=== PATIENT | male | born 1955 | race Caucasian/White ===

== ENCOUNTER 2020-12-20 07:02 | Day surgery (SDC) | payer OTHER ==
[~2020-12-20] VITALS: Ht 172.7 cm; Wt 69.2 kg
[~2020-12-20 07:02] MED LIST: ACET325 PO; ATOR20 PO; Aspir 8181 MG PO; BUPR150ER PO; DOC250 PO; ENAL10 PO; Flomax0.4 MG PO; HYDCHL12.5 PO; IBUP600 PO; Inderal60 MG PO; MELO7.5 PO; METO25ER PO; NICO2 PO; OXYC5 PO; PANT40; PANT40 PO; QUET100 PO; QUET200 PO; Rocephin 10001000 MG IV; Rocephin 1g1 G/50 ML IV; SENN187 PO; Seroquel Xr150 MG PO; TAMS.4ER PO; TRAM50 PO; Ventolin5 MG/1 ML INH
--- NOTE | 2020-12-20 07:51 | NUR ---
12/20/20 0751 GENESIS CANNON FIRST ATTEMPT AT IV R HAND INFILTRATED. SECOND ATTEMPT AT IV IN R FOREARM WAS SUCCESSFUL
== END 2020-12-20 08:55 | disposition home or self-care (01) ==
LOC: ORSCSDS 07:02 → ORD 08:30 → ORSCSDS 08:30
PROVIDERS: Surgery
PROC: 0DJD8ZZ Inspection of Lower Intestinal Tract, Via Natural or Artificial Opening Endoscopic (ICD-10-PCS; principal; 2020-12-20 08:30)
DX: Z12.11 Encounter for screening for malignant neoplasm of colon (principal); Z86.010 Personal history of colon polyps; K21.9 Gastro-esophageal reflux disease without esophagitis; I48.91 Unspecified atrial fibrillation; I10 Essential (primary) hypertension; F32.A Depression, unspecified; E11.9 Type 2 diabetes mellitus without complications; F17.210 Nicotine dependence, cigarettes, uncomplicated; Z79.82 Long term (current) use of aspirin; Z79.899 Other long term (current) drug therapy
CPT/HCPCS: 82947; J2405; J2704; J7120

== ENCOUNTER 2021-06-08 16:38 | Inpatient (IN) | payer OTHER ==
[~2021-06-08] VITALS: Ht 172.7 cm; Wt 67.7 kg
[2021-06-08 17:22] LABS: BASOPHILS ABSOLUTE AUTO 0.03 K/mm3 (0.00-0.23); BASOPHILS PERCENT AUTO 0 % (0-2); EOSINOPHILS PERCENT AUTO 0 % (0-6); Hemoglobin 12.7 g/dL (13.5-17.5); IMMATURE GRAN PERCENT AUTO 1 % (0-1); LYMPHOCYTES PERCENT AUTO 6 % (21-46); MONOCYTES ABSOLUTE AUTO 0.97 K/mm3 (0.16-1.47); MONOCYTES PERCENT AUTO 12 % (4-13); Mean Corpuscular HGB 35.7 pg (26.0-34.0); Mean Corpuscular HGB Conc 34.3 g/dL (31.5-36.5); Mean Corpuscular Volume 104 fL (80-100); Mean Platelet Volume 10.8 fL (9.1-12.4); NEUTROPHILS ABSOLUTE AUTO 6.86 K/mm3 (1.96-9.15); NEUTROPHILS PERCENT AUTO 81 % (41-73); Platelet Count 136 K/mm3 (150-400); RDW Coefficient Variation 15.4 % (11.7-14.2); RDW Standard Deviation 59.7 fL (35.1-46.3); Red Blood Cell Count 3.56 M/mm3 (4.30-5.90); White Blood Cell Count 8.46 K/mm3 (4.00-11.30)
[2021-06-08 17:33] LABS: Alanine Aminotransfer (ALT/SGP 121 U/L (12-78); Albumin, Blood 4.2 g/dL (3.4-5.0); Alk Phos 127 U/L (50-136); Anion Gap 16 mmol/L (6-16); Aspartate Aminotrans (AST/SGOT 200 U/L (12-37); Blood Urea Nitrogen 12 mg/dL (8-24); Bun/Creatinine Ratio 13.1 (12.0-20.0); CO2, Blood 19 mmol/L (21-32); Calcium, Blood 9.5 mg/dL (8.5-10.1); Chloride, Blood 99 mmol/L (98-108); Creatinine, Blood 0.92 mg/dL (0.60-1.20); Glomerular Filtration Rate >60 (60-); Glucose, Blood 106 mg/dL (70-99); Potassium, Blood 3.7 mmol/L (3.5-5.5); Sodium, Blood 134 mmol/L (136-145); Total Protein, Blood 8.2 g/dL (6.4-8.2)
[2021-06-08 18:25] LABS: Source, Urine Clean Catch
[2021-06-08 18:28] LABS: Bilirubin, Urine Neg (Neg); Blood, Urine 4+ (Neg); Color, Urine Yellow (P-Yellow); Glucose Qualitative, Urine Neg (Neg); Ketones, Urine 2+ (Neg); Leukocyte Esterase, Urine Neg (Neg); Nitrite, Urine Neg (Neg); Protein, Urine 1+ (Neg); Urobilinogen, Urine NORM (Normal)
[2021-06-08 18:41] LABS: Appearance, Urine Hazy (Clear)
[2021-06-08 18:42] LABS: Bacteria Mod /hpf; Red Blood Cells, Urine 0-2 /hpf (0-2); Squamous Epithelial Cells Few /hpf (Few); White Blood Cells, Urine 0-2 /hpf (0-5)
[2021-06-08 18:44] LABS: U Amphetamine Screen Not Detected; U Barbituate Screen Not Detected; U Benzodiazapine Screen Not Detected; U Buprenorphine Screen Not Detected; U Cannabinoids Screen Not Detected; U Cocaine Screen Not Detected; U Methadone Screen Not Detected; U Methamphetamine Screen Not Detected; U Opiates Screen Not Detected; U Oxycodone Screen Not Detected; U Phencyclidine Screen Not Detected; U Propoxyphene Screen Not Detected
--- NOTE | 2021-06-09 03:55 | NUR ---
Patient recieved in stable condition from the ER. Patient conversive and able to answer admit questions. Patient able to swallow medications whole with water. CIWA initiated. Patient shaky but did not score above 6 at this time. Voiding QS in urinal. Tele with intermittent bouts of sinus tach. Continue to momitor.
[2021-06-09 05:09] LABS: BASOPHILS ABSOLUTE AUTO 0.03 K/mm3 (0.00-0.23); BASOPHILS PERCENT AUTO 0 % (0-2); EOSINOPHILS PERCENT AUTO 0 % (0-6); Hemoglobin 12.1 g/dL (13.5-17.5); IMMATURE GRAN PERCENT AUTO 1 % (0-1); LYMPHOCYTES ABSOLUTE AUTO 0.98 K/mm3 (0.84-5.20); LYMPHOCYTES PERCENT AUTO 13 % (21-46); MONOCYTES ABSOLUTE AUTO 0.77 K/mm3 (0.16-1.47); MONOCYTES PERCENT AUTO 11 % (4-13); Mean Corpuscular HGB 35.9 pg (26.0-34.0); Mean Corpuscular HGB Conc 34.6 g/dL (31.5-36.5); Mean Corpuscular Volume 104 fL (80-100); Mean Platelet Volume 10.7 fL (9.1-12.4); NEUTROPHILS ABSOLUTE AUTO 5.46 K/mm3 (1.96-9.15); NEUTROPHILS PERCENT AUTO 74 % (41-73); Platelet Count 135 K/mm3 (150-400); RDW Coefficient Variation 15.6 % (11.7-14.2); RDW Standard Deviation 59.7 fL (35.1-46.3); Red Blood Cell Count 3.37 M/mm3 (4.30-5.90); White Blood Cell Count 7.34 K/mm3 (4.00-11.30)
[2021-06-09 05:31] LABS: Alanine Aminotransfer (ALT/SGP 104 U/L (12-78); Albumin, Blood 3.7 g/dL (3.4-5.0); Alk Phos 110 U/L (50-136); Anion Gap 16 mmol/L (6-16); Aspartate Aminotrans (AST/SGOT 187 U/L (12-37); Bilirubin, Total 1.9 mg/dL (0.1-1.0); Blood Urea Nitrogen 11 mg/dL (8-24); Bun/Creatinine Ratio 12.7 (12.0-20.0); CO2, Blood 20 mmol/L (21-32); Calcium, Blood 8.9 mg/dL (8.5-10.1); Chloride, Blood 102 mmol/L (98-108); Creatinine, Blood 0.87 mg/dL (0.60-1.20); Globulin, Blood 3.7 g/dL (2.2-4.0); Glomerular Filtration Rate >60 (60-); Glucose, Blood 76 mg/dL (70-99); Potassium, Blood 3.4 mmol/L (3.5-5.5); Sodium, Blood 138 mmol/L (136-145); Total Protein, Blood 7.4 g/dL (6.4-8.2)
--- NOTE | 2021-06-09 18:33 | NUR ---
END OF SHIFT SUMMARY Pt doing well this shift, worked with therapy. OT reports pt can be impulsive at times, and recommends pt use FWW. Tele notified RN of tachy runs 130-160, but sustaining HR 120s. aware, orders for IV Metoprolol & priyanka hose socks. Pt denies cardiac s/sx. ECHO ordered, pt will remain hospitilized over night.
--- NOTE | 2021-06-10 03:59 | NUR ---
Patient with Low grade temp overnight. Tachycardia. PRN Metoprolol given at beginning of shift. Discussed his heart rythym with residential appliance repair technician multiple times. He has been having an increase in PACs overnight but after the metoprolol his HR was around 100 for the rest of my shift. Tylenol given for temperature. Up in room ad johnson. Voiding QS. CIWA negative for interventions.
[2021-06-10 08:59] LABS: BASOPHILS ABSOLUTE AUTO 0.06 K/mm3 (0.00-0.23); BASOPHILS PERCENT AUTO 1 % (0-2); EOSINOPHILS PERCENT AUTO 0 % (0-6); Hematocrit 38.7 % (37.0-53.0); Hemoglobin 13.3 g/dL (13.5-17.5); IMMATURE GRAN ABSOLUTE AUTO 0.08 K/mm3 (0.00-0.10); IMMATURE GRAN PERCENT AUTO 1 % (0-1); LYMPHOCYTES ABSOLUTE AUTO 1.33 K/mm3 (0.84-5.20); LYMPHOCYTES PERCENT AUTO 17 % (21-46); MONOCYTES ABSOLUTE AUTO 0.66 K/mm3 (0.16-1.47); MONOCYTES PERCENT AUTO 9 % (4-13); Mean Corpuscular HGB Conc 34.4 g/dL (31.5-36.5); Mean Corpuscular Volume 105 fL (80-100); Mean Platelet Volume 10.5 fL (9.1-12.4); NEUTROPHILS ABSOLUTE AUTO 5.56 K/mm3 (1.96-9.15); NEUTROPHILS PERCENT AUTO 72 % (41-73); Platelet Count 179 K/mm3 (150-400); RDW Coefficient Variation 15.3 % (11.7-14.2); RDW Standard Deviation 59.4 fL (35.1-46.3); Red Blood Cell Count 3.69 M/mm3 (4.30-5.90); White Blood Cell Count 7.69 K/mm3 (4.00-11.30)
[2021-06-10 09:18] LABS: Anion Gap 11 mmol/L (6-16); Blood Urea Nitrogen 23 mg/dL (8-24); Bun/Creatinine Ratio 24.4 (12.0-20.0); CO2, Blood 23 mmol/L (21-32); Calcium, Blood 9.5 mg/dL (8.5-10.1); Chloride, Blood 104 mmol/L (98-108); Creatinine, Blood 0.94 mg/dL (0.60-1.20); Glomerular Filtration Rate >60 (60-); Glucose, Blood 152 mg/dL (70-99); Phosphorus, Blood 3.9 mg/dL (2.5-4.9); Potassium, Blood 3.4 mmol/L (3.5-5.5); Sodium, Blood 138 mmol/L (136-145)
--- NOTE | 2021-06-10 09:25 | NUR ---
Pt sitting up in chair for breakfast, a/ox3, pleasant and coopertive with care, follows commands well, denies pain or complaints, lungs are clear t/o, resp even and unlabored, no cough noted, hrr, tele in place running sr with freq pacs', rate increases to 130's but does not sustain, no edema noted, ppp+2, cap refill< 3 sec, vs stable, afebrile, iv site is clear and patent, btx4, abd flat soft nontender, voids without diff, skin c/w/d, maew, maria r, call light in reach.
--- NOTE | 2021-06-10 18:57 | NUR ---
pt had a libial heart rate this morning, increased her metoprolol with no effect, gave an iv dose of metoprolol and rate has stayed in the 90's, pt anxious to go home to his dog, no complaints or dizziness. call light in reach.
--- NOTE | 2021-06-11 04:50 | NUR ---
SHIFT SUMMARY ADMITTED FOR DIZZYNESS. FULL CODE. PLAN IS FOR DC HOME WHEN STABLE. NO TACHYCARDIC EPISODES THIS SHIFT. TELEMETRY: NSR @ 84 BPM. INDEPENDENT IN ROOM RA. REGULAR DIET. Q4 CIWAS HAVE BEEN SCORE OF 1-2.
--- NOTE | 2021-06-11 07:53 | NUR ---
pt sitting up in a chair, a/ox3, pleasant and cooperative with care, follows commands well, denies pain or sob, lungs are clear t/o, resp even and unlabored, no cough noted, hrr, tele in place running sr with pac's in the 80's to 90's this am, no edema noted, ppp+2, cap refill<3sec, vs stable, afebrile, iv site is clear and patent, btx4, abd flat soft nontender, voids without diff, skin c/w/d, maew, maria r, call light in reach.
[2021-06-11] MEDS ORDERED: Lopressor 25 mg25 MG PO (11:56)
[2021-06-11] MEDS ORDERED: OMEP20ER PO (12:02)
--- NOTE | 2021-06-11 13:00 | NUR ---
Pt has been discharged to home, went over discharge instructions with him, he verbalized understanding, new medications faxed to [facility] and dose for tonight called into [facility], iv removed intact. [facility] pt. left via wheelchair with lot associate in attendence, with all his belongings.
--- NOTE | 2021-06-11 13:32 | NUR ---
CALLED PT TO LET HIS SON KNOW HE WILL NEED NEED TO RENTAL COUNTER CLERK HIS METOPROLOL AND POTASSIUM SCRIPTS TODAY SO PT CAN TAKE BP TONIGHT AT HOME.
== END 2021-06-11 12:57 | disposition home or self-care (01) | DRG 312 ==
LOC: ER 16:38 → MEDS 16:39
PROVIDERS: Family Medicine; Student in an Organized Health Care Education/Training Program; ADMIT Internal Medicine
DX: I95.1 Orthostatic hypotension (principal); I47.1 Supraventricular tachycardia; I48.0 Paroxysmal atrial fibrillation; R79.89 Other specified abnormal findings of blood chemistry; R41.82 Altered mental status, unspecified; E87.6 Hypokalemia; D69.6 Thrombocytopenia, unspecified; D64.9 Anemia, unspecified; R79.1 Abnormal coagulation profile; F10.10 Alcohol abuse, uncomplicated; F43.10 Post-traumatic stress disorder, unspecified; J43.9 Emphysema, unspecified; E11.9 Type 2 diabetes mellitus without complications; N40.0 Benign prostatic hyperplasia without lower urinary tract symptoms; K21.9 Gastro-esophageal reflux disease without esophagitis; F17.200 Nicotine dependence, unspecified, uncomplicated; Z88.0 Allergy status to penicillin; Z71.6 Tobacco abuse counseling; Z71.41 Alcohol abuse counseling and surveillance of alcoholic; Z79.82 Long term (current) use of aspirin; Z79.899 Other long term (current) drug therapy; Z98.890 Other specified postprocedural states; V49.40XA Driver injured in collision with unspecified motor vehicles in traffic accident, initial encounter
CPT/HCPCS: 36415; 70450; 71045; 71260; 80053; 80069; 81001; 83735; 83880; 84145; 84484; 85025; 85379; 87086; 93005; 93010; 93306; 96365; 96372; 96375; 97112; 97116; 97161; 97165; 97530; 99285-25; A9270; G0378; G0480; J0153; J1650; J1790; J3475; J7030; Q9967

== ENCOUNTER 2023-01-14 11:48 | Inpatient (IN) | payer OTHER ==
[~2023-01-14] VITALS: Ht 175.3 cm; Wt 71.5 kg
[~2023-01-14 11:48] MED LIST changes: +Lopressor 25 mg25 MG PO; +OMEP20ER PO; -QUET100 PO; +QUETIAPINE FUM400 M2 PO
[2023-01-14 12:34] LABS: BASOPHILS ABSOLUTE AUTO 0.04 K/mm3 (0.00-0.23); BASOPHILS PERCENT AUTO 0 % (0-2); EOSINOPHILS PERCENT AUTO 0 % (0-6); Hematocrit 37.8 % (37.0-53.0); Hemoglobin 12.6 g/dL (13.5-17.5); IMMATURE GRAN ABSOLUTE AUTO 0.02 K/mm3 (0.00-0.10); IMMATURE GRAN PERCENT AUTO 0 % (0-1); LYMPHOCYTES ABSOLUTE AUTO 1.19 K/mm3 (0.84-5.20); LYMPHOCYTES PERCENT AUTO 12 % (21-46); MONOCYTES ABSOLUTE AUTO 0.48 K/mm3 (0.16-1.47); MONOCYTES PERCENT AUTO 5 % (4-13); Mean Corpuscular HGB 33.8 pg (26.0-34.0); Mean Corpuscular HGB Conc 33.3 g/dL (31.5-36.5); Mean Corpuscular Volume 101 fL (80-100); Mean Platelet Volume 9.7 fL (9.1-12.4); NEUTROPHILS ABSOLUTE AUTO 8.41 K/mm3 (1.96-9.15); NEUTROPHILS PERCENT AUTO 83 % (41-73); Platelet Count 297 K/mm3 (150-400); RDW Coefficient Variation 13.1 % (11.7-14.2); RDW Standard Deviation 48.7 fL (35.1-46.3); Red Blood Cell Count 3.73 M/mm3 (4.30-5.90); White Blood Cell Count 10.14 K/mm3 (4.00-11.30)
[2023-01-14 13:24] LABS: Albumin, Blood 3.8 g/dL (3.4-5.0); Bilirubin, Total 2.6 mg/dL (0.1-1.0); Calcium, Blood 8.8 mg/dL (8.5-10.1); Creatinine, Blood 0.83 mg/dL (0.60-1.20); Globulin, Blood 3.9 g/dL (2.2-4.0); Potassium, Blood 4.1 mmol/L (3.5-5.5); Total Protein, Blood 7.7 g/dL (6.4-8.2)
--- NOTE | 2023-01-14 17:22 | NUR ---
ER REPORT PT REPORT RECIEVED FROM ER. AWAITING TRANSFER. CARE ON GOING.
--- NOTE | 2023-01-14 18:14 | NUR ---
NOTE PT ALERT. NEED CUEING TO SLOW DOWN. HAVING DIFFICULTY PICKING UP SILVERWARE. REFUSED TO USE THE KNIFE AND FORK BECAUSE HE COULDN'T HOLD IT. SPOON WAS OK. BED SIDE SWALLOW. WATER BY SPOON-NO COUGH, WATER BY CUP NO COUGH. WATER BY STREAW NO COUGH BUT NEEDED TO CUE HIM TO SLOW DOWN. HE DOESN'T ALWAYS PROCESS DIRECTIONS WELL. GAVE HIM DINNER TRAY WITH OBSERVATION. ATE THE APPLE SAUCE WITHOUT SPOON DRANK OUT OF THE CUP. DRANK MILK-CUED TO SLOW DOWN. ATE BROCCHLI WITH HIS FINGERS. NO COUGH. NEEDED CUES TO TAKE SMALLER SPOONS OF STEW. NOT CHEWING HIS FOOD WELL. CARE ONGOING.
[2023-01-14 18:22] VITALS: BP 146/82
[2023-01-14] MEDS ORDERED: ALBU90OI INH (21:17)
[2023-01-14 21:18] VITALS: BP 138/77
[2023-01-14] MEDS ORDERED: BISA10S PR (21:22)
[2023-01-14] MEDS ORDERED: ATOR20 PO (21:22)
[2023-01-14] MEDS ORDERED: DECARA1250 MC1 PO (21:23)
[2023-01-14] MEDS ORDERED: B-121000 MC7 PO (21:24)
[2023-01-14] MEDS ORDERED: Vitamin D1000 UNI1 PO (21:24)
[2023-01-14] MEDS ORDERED: ALEVE ARTHRITI100 GM TOP (21:27)
[2023-01-14] MEDS ORDERED: LIDO700A20 TOP (21:28)
[2023-01-14] MEDS ORDERED: MULVITA PO (21:29)
[2023-01-14] MEDS ORDERED: ARTIFICIAL TEA1 EAC1 BOTHEYES (21:29)
[2023-01-14] MEDS ORDERED: MIRALAX17 GM PO (21:30)
[2023-01-14] MEDS ORDERED: ONELAX FIBER T368 GM PO (21:31)
[2023-01-14] MEDS ORDERED: SENNA LAXATIVE8.6 MG PO (21:32)
--- NOTE | 2023-01-15 04:41 | NUR ---
NOC SHIFT SUMMARY: NO C/O PAIN. SLURRED WORDS AND EXPRESSIVE APHASIA. PATIENT BECOMES VERY FRUSTRATED NOT BEING ABLE TO MAKE NEEDS KNOWN. INDEPENDENT. LINOTYPE OPERATOR EQUAL AND STRONG. TAKES PILLS WHOLE WITH WATER. BED IN LOW POSITION. CALL LIGHT WITHIN REACH.
[2023-01-15 05:54] VITALS: BP 115/76
[2023-01-15 06:20] LABS: LDL/HDL RATIO 0.8
[2023-01-15 06:21] LABS: CHOL/HDL RATIO 2.2; Cholesterol 125 mg/dL (50-200); HDL Cholesterol 57 mg/dL (>39); Low Density Lipoprotein Chol 48 mg/dL (0-110); Triglycerides 98 mg/dL (30-160); Very Low Density Lipoprot Chol 19 mg/dL (6-32)
[2023-01-15 07:15] VITALS: BP 134/75
[2023-01-15 16:02] VITALS: BP 156/88
--- NOTE | 2023-01-15 19:19 | NUR ---
SHIFT SUMMARY PT INDEPENDENT IN ROOM. HAS TROUBLE WITH WORD FINDING AND SLURRED SPEECH. ABLE TO START A SENTENCE BUT UNABLE TO COMPLETE IT. EXPRESSES FRUSTRATION WITH INABILITY TO COMMUNICATE. SON IN TO SEE PT FOR A BIT EARLIER. DOESN'T LIKE THE THICKENED LIQUIDS AND NEEDS REMINDING TO EAT SLOWLY AND STOP WHEN HE COUGHS.
[2023-01-15 20:28] VITALS: BP 131/85
--- NOTE | 2023-01-16 05:02 | NUR ---
SHIFT SUMMARY PT SITTING UP IN BED DURNG BEDSIDE ROUNDS- PT TOOK HS SCHEDULED MEDS WHOLE IN APPLE SAUCE WITHOUT PROBLEMS- PT GETS UPSET D/T NOT BEING ABLE TO FIND THE RIGHT WORDS, ENCOURAGED PT TO TRY TO NOT GET UPSET WITH SELF AND TAKE A DEEP BREATH AND RELAX WHEN UNABLE TO COME UP WITH THE WORD, PT ANSWERS YES/NO QUESTIONS WITHOUT PROBLEMS, PT ABLE TO FIND SOME WORDS AND ABLE TO UNDERSTAND WHAT HE IS TRYING TO SAY- PT INDEPENDENT IN ROOM, PT USED CALL LIGHT APPROPRIATELY IN THE NIGHT, PT BED LOW POSITION, CALL LIGHT WITHIN REACH
[2023-01-16 05:46] VITALS: BP 135/78
[2023-01-16 07:49] VITALS: BP 132/76
[2023-01-16 14:45] VITALS: BP 121/84
--- NOTE | 2023-01-16 18:44 | NUR ---
SUMMARY- PT ALERT TO SELF AND CIRCUMSTANCE. PT AMBULATES INDEPENDANT, STEADY ON FEET. NERUO DEFICITIN SPEECH WITH EXPRESSIVE APHASIA, ALSO SWALLOW DIFFICULTY ON DYSPHAGIA DIET, HAS DECREASE IN R ARM MOVEMENT. PT TOLERATING FOOD AND FLUIDS. HONEY THICK LIQUIDS. [facility], [facility]
[2023-01-16 20:00] VITALS: BP 142/92
[2023-01-17 04:47] VITALS: BP 127/75
--- NOTE | 2023-01-17 06:00 | NUR ---
SHIFT SUMMARY PT AMBULATING IN ROOM DURING REPORT FROM BRYANT DORMAN, PT DENIED ANY NEEDS AT TIME- PT TOOK SCHEDULED MEDICATIONS WITHOUT PROBLEMS, PT OOK MEDICATIONS WHOLE IN APPLE SAUCE- PT SLEPT T/O NIGHT =BED LOW POSITION, CALL LIGHT WITHIN REACH, PT INDEPENDENT IN ROOM
[2023-01-17 07:22] VITALS: BP 133/83
[2023-01-17 15:01] VITALS: BP 129/82
--- NOTE | 2023-01-17 19:12 | NUR ---
PT IS ALOX4 PLEASANT AND COOPERATIVE, PT HAS SPEECH ASPHASIA BUT IS ABLE TO MAKE HIS NEEDS KNOWN EASILY. THE PT WAS UP IND IN HIS ROOM. THE PT HAD SOME CAUGHING TODAY AT LUNCH WITH THE GRUOND. MEAT. THE PT TOLERATED THE PUREE DINNER WELL. THE PTS FAMILY WAS IN TO VISIT TODAY. PT DENIED ANY PAIN. CALL LIGHT IN REACH
[2023-01-17 21:04] VITALS: BP 139/80
--- NOTE | 2023-01-18 05:00 | NUR ---
Shift Summary Pt still having difficulty finding words and expressing ideas. Pt on Honey thick diet and takes meds whole im applesauce. No visible signs of aspiration. Pt independent and steady on his feet. No c/o of pain or nausea. Slept well t/o the night.
[2023-01-18 05:54] VITALS: BP 136/75
[2023-01-18 07:09] VITALS: BP 129/83
[2023-01-18 10:28] LABS: SARS-Cov-2 (COVID-19) PCR, MMC NEGATIVE (NEGATIVE)
--- NOTE | 2023-01-18 11:46 | NUR ---
DISCHARGE NOTE- CALLED [facility] AND GAVE VERBAL REPORT TO LAKIA AVILEZ. AFTER REPORT THERE WERE NO FURTHER QUESTIONS NOTED AT THAT TIME. PT TRANSPORT SET FOR 1200. IV CURRENTLY BEING DC'D BY [employer] 2. PT UP INDEPENDENTLY IN THE ROOM. NO RIGHT SIDED WEAKNESS NOTED. PT TO GO BY [facility] TRANSPORT TO [facility] AROUND NOON.
[2023-01-18] MEDS ORDERED: CLOP75 PO (11:47)
[2023-01-18] MEDS ORDERED: FAMO20 PO (11:47)
== END 2023-01-18 12:53 | DRG 66 ==
LOC: ER 11:48 → MEDS 11:49 → ENPENDDIS 01-18 10:11 → MEDS 01-18 12:53
PROVIDERS: Student in an Organized Health Care Education/Training Program; ADMIT Internal Medicine
DX: I63.9 Cerebral infarction, unspecified (principal); F10.20 Alcohol dependence, uncomplicated; E11.9 Type 2 diabetes mellitus without complications; F43.10 Post-traumatic stress disorder, unspecified; K21.9 Gastro-esophageal reflux disease without esophagitis; F17.210 Nicotine dependence, cigarettes, uncomplicated; R47.01 Aphasia; R47.81 Slurred speech; Z88.0 Allergy status to penicillin; Z71.6 Tobacco abuse counseling
CPT/HCPCS: 36415; 70450; 74230; 80053; 80061; 85025; 92523; 92526; 92610; 92611; 93005; 93010; 93306; 93880; 94760; 96372; 97110; 97116; 97161; 97530; 99285-25; A9270; G0378; J1644; U0002

== ENCOUNTER 2024-08-23 05:42 | Emergency (ER) | payer OTHER ==
[~2024-08-23] VITALS: Ht 172.7 cm; Wt 72.6 kg
[~2024-08-23 05:42] MED LIST changes: +ALBU90OI INH; +ALEVE ARTHRITI100 GM TOP; +ARTIFICIAL TEA1 EAC1 BOTHEYES; +B-121000 MC7 PO; +BISA10S PR; +CLOP75 PO; +DECARA1250 MC1 PO; +FAMO20 PO; +LIDO700A20 TOP; +MIRALAX17 GM PO; +MULVITA PO; +ONELAX FIBER T368 GM PO; +SENNA LAXATIVE8.6 MG PO; +Vitamin D1000 UNI1 PO
[2024-08-23 06:48] VITALS: BP 151/84
[2024-08-23] MEDS ORDERED: Benadryl Itch28.3 G1 TOP (07:19)
[2024-08-23] MEDS ORDERED: PERM5TC TOP (07:19)
== END 2024-08-23 07:53 | disposition home or self-care (01) ==
LOC: ER 05:42
DX: L25.9 Unspecified contact dermatitis, unspecified cause (principal); F43.10 Post-traumatic stress disorder, unspecified; E11.9 Type 2 diabetes mellitus without complications; F17.200 Nicotine dependence, unspecified, uncomplicated; Z79.82 Long term (current) use of aspirin; Z79.02 Long term (current) use of antithrombotics/antiplatelets; Z79.899 Other long term (current) drug therapy; Z88.0 Allergy status to penicillin
CPT/HCPCS: 99282; A9270